=== PATIENT | female | born 1960 | race African-American/Black ===

== ENCOUNTER 2024-05-04 07:27 | Emergency (ER) | payer OTHER | END 2024-05-04 08:08 | disposition home or self-care (01) | LOC: BURERS 07:27 | DX: J42 Unspecified chronic bronchitis (principal); I10 Essential (primary) hypertension; F17.210 Nicotine dependence, cigarettes, uncomplicated; Z79.899 Other long term (current) drug therapy | CPT/HCPCS: 99283 ==